=== PATIENT | female | born 1990 | race Caucasian/White ===

== ENCOUNTER → 2020-03-08 | Outpatient (CLI) | payer OTHER ==
[~2020-03-08] MED LIST: DOXYCYCLINE HY100 M2 PO; FERROUS SULFAT325 M2 PO; IBUPROFEN600 MG PO; LORTAB 5-325 M1 EACH PO
== END ==
LOC: CT 06:52
DX: R10.30 Lower abdominal pain, unspecified (principal); K59.09 Other constipation; N83.8 Other noninflammatory disorders of ovary, fallopian tube and broad ligament
CPT/HCPCS: Q9967